=== PATIENT | male | born 1935 | race Caucasian/White ===

== ENCOUNTER 2017-10-11 19:47 | Inpatient (IN) | payer MEDICARE ==
[~2017-10-11] VITALS: Ht 165.1 cm; Wt 68.2 kg
--- NOTE | ~2017-10-11 | EC ---
PATIENT:AARON KEYES DATE OF SERVICE: 10/11/17 SEX: M MEDICAL RECORD: [id number] DATE OF : 35 LOCATION:[facility] AGE OF PATIENT: 82 ADMISSION DATE: 10/11/17 REFERRING PHYSICIAN: INTERPRETING PHYSICIAN: VALDEZ ROSAS MD ECHOCARDIOGRAM REPORT ECHO CHARGES 4 ECHO COMPLETE Date: 10/12 CLINICAL DIAGNOSIS: CP/SOB/PE'S ECHOCARDIOGRAPHIC MEASUREMENTS (adult normal given) AC root (d.<3.7cm) 2.7 cm LV Septum d (<1.2 cm> 1.1 cm Valve Excursion 1.7 cm LV Septum (systole) 1.2 cm Left Atria (s.<4.0cm> 2.6 cm LVPW d(<1.2cm) 1.0 cm RV (d.<2.3cm) 2.9 cm LVPW (sytole) 1.5 cm LV diastole(<5.6CM) 3.9 cm MV E-F(>70mm/sec) cm LV systole 3.0 cm LVOT Diameter 1.8 cm MV exc.(>10mm) cm Est.ejection fraction (50-75%) % DOPPLER: LVIT cm/sec A 78.0 cm/sec E 57.0 cm/sec LA cm/sec RVSP 41.0 mmHg LVOT 83.0 cm/sec AOP1/2T m/s Asc. Ao 109 cm/sec RVOT 59.0 cm/sec RA cm/sec PA 66.0 cm/sec AV Gradient Peak 4.8 mmHg AV Mean 2.5 mmHg AV Area 2.0 cm MV Gradient Peak 3.2 mmHg MV Mean 1.1 mmHg MV Area cm COMMENTS: Transformer Assembly Supervisor: 1 PRATIBHA BREAUXOE Communications Field Technician: 3 Dr. Carnes TAPE# PACS Pericardial Effusion N DATE OF SERVICE: Adequate 2-D, color flow and spectral Doppler, M-mode. No LVH. LV internal dimensions are normal. Wall motion is normal. EF is greater than or equal to 55%. Aortic valve is tricuspid with aortic valve sclerosis, but no significant stenosis seen. Left atrium is normal at 3.6. Mitral valve is thickened with mild MR. Right-sided chamber is normal. Trace TR. ECHOCARDIOGRAM REPORT [id number] AARON KEYES TRANSINT:[id number] Voice Confirmation ID: [id number] DOCUMENT ID: [id number] VALDEZ ROSAS MD at 0847 CC: [id number] DICTATION DATE: 10/13/17 1016 VESSEL BUILDER: 10/13/17 1520 ADM IN [facility] [address] [place] [address]
--- NOTE | ~2017-10-11 | CN ---
PATIENT NAME:AARON PULIDO MEDICAL RECORD: [id number] : 35 LOCATION:[facility] ADMIT DATE: 10/11/17 ACCOUNT: [id number] CONSULTING PHYSICIAN: RICHARD LU MD REFERRING PHYSICIAN: TOM LOTT MD DATE OF CONSULTATION: 10/12/2017 CONSULT REQUESTING PHYSICIAN: Dr. Tom Lott. REASON FOR CONSULTATION: Bilateral pneumonia, bilateral PE, and cavitating lesion in the lung. HISTORY OF PRESENT ILLNESS: Mr. Pulido is an 82-year-old gentleman who is sick for the last 3 days, having some chest pain and shortness of breath and taken to the local hospital. CTA showed pulmonary embolism and bilateral lower lobe pneumonia. The patient denies any fever or chill. No night sweats. She has only complaint that is chest pain and shortness of breath, cough without sputum production. REVIEW OF SYSTEMS: Mainly in the history of present illness. PAST MEDICAL HISTORY: 1. Gastroesophageal reflux disease. 2. COPD. 3. Tobacco dependence syndrome. PAST SURGICAL HISTORY: Nonsignificant. ALLERGIES: No known drug allergies. MEDICATIONS: CommProve is reviewed. PERSONAL AND SOCIAL HISTORY: The patient is still everyday smoker from a very young age. He is a nondrinker. FAMILY HISTORY: Noncontributory. PHYSICAL EXAMINATION: GENERAL: Now, the patient is lying comfortably. He is not in acute distress. VITAL SIGNS: The blood pressure 123/78, pulse is 86, respirations are 18, temperature 98.6, SPO2 95% on room air. HEENT: Conjunctivae are pink. Sclerae are not icteric. NECK: Supple, no JVD. CHEST: The chest excursion is minimal on both prolonged expiration with wheezing. HEART: Rhythm regular, normal sound, no murmur. ABDOMEN: Soft, bowel sounds present. No hepatosplenomegaly. RECTAL: Deferred. EXTREMITIES: No cyanosis, no clubbing, no pedal edema. SKIN: Warm, normal turgor. CENTRAL NERVOUS SYSTEM: The patient is awake and alert. There are no obvious intracranial abnormalities. The gait was not tested. IMAGING: Chest radiograph, there is bilateral nodular infiltrate left lower lobe more than the right. CONSULT REPORT [id number] AARON PULIDO OTHER LABORATORY DATA: CBC: WBC is 7.1, hemoglobin 12, hematocrit 36.4, the platelet count 203. Chemistry: Sodium is 139, potassium is 4.2, BUN is 27, creatinine is 1. IMPRESSION: 1. Pulmonary embolism. 2. Multilobar pneumonia consistent with a community-acquired pneumonia. 3. Acute exacerbation of chronic obstructive pulmonary disease. 4. Tobacco dependence syndrome. 5. Dyspnea. 6. Gastroesophageal reflux disease. RECOMMENDATION: 1. Continue Lovenox 1 mg per kg subQ b.i.d. We will start Xarelto or Eliquis after 3 days. 2. Check the CT scan of the chest. 3. Start albuterol/ipratropium nebulizer. Start Brovana, budesonide nebulizer, methylprednisolone IV. 4. Start him and continue Rocephin IV, Levaquin IV. Dr. Nagel has already been consulted. 5. Check the CT scan of the chest. 6. Nicotine patch. Smoking cessation. 7. Followup labs and chest radiograph. Dr. Marco Lott, thank you for involving me in the care of Mr. Pulido. TRANSINT:[id number] Voice Confirmation ID: [id number] DOCUMENT ID: [id number] RICHARD LU MD CC: TOM LOTT [id number] DICTATION DATE: 10/12/17 1656 POWERHOUSE HELPER: 10/13/17 0051 ADM IN [facility] [address] [place] [id number]
--- NOTE | ~2017-10-11 | PRO ---
PATIENT:AARON KEYES MEDICAL RECORD: [id number] : 35 LOCATION:[facility] ADMISSION DATE: 10/11/17 PROCEDURE PERFORMED BY: RICHARD LU MD DATE OF PROCEDURE: 10/15/2017 PROCEDURE: Fiberoptic bronchoscopy. INDICATION: Bilateral lower lobe with a cavitating lesion. MONITORING: EKG, pulse, and blood pressure were monitored throughout the procedure. MEDICATIONS: Atropine 0.6 mg IM, Phenergan 12.5 mg IV, Versed 2 mg IV, and fentanyl 50 mcg IV. PROCEDURE: After obtaining the conscious sedation, the fiberoptic bronchoscope was passed through the mouth. The epiglottis was normal. The vocal cords were normal, moving equally on phonation. There were whitish secretions in the oropharynx. The pyriform sinuses were normal. The main trachea was normal. The tobias was sharp. There are thick whitish secretions bilaterally in the main bronchus. The right upper lobe, right middle lobe, right lower lobe segment within normal range. No endobronchial lesion was seen. The left main bronchus, the subsegment to the left upper lobe, lingula, and left lower lobe within normal range. No endobronchial lesion was seen. There were thick whitish secretions in the endobronchial tree. Specimen washing was obtained and sent for routine culture sensitivity, AFB, fungus, and cytology. Overall, the patient tolerated the procedure very well. TRANSINT:[id number] Voice Confirmation ID: [id number] DOCUMENT ID: [id number] RICHARD LU MD CC: [id number] DICTATION DATE: 10/15/17 162 DISTRIBUTED [employer] CONSULTANT: 10/15/172118 ADM IN [place] [id number] [place] [address]
[2017-10-11 21:15] VITALS: BP 144/74
[2017-10-11 22:50] LABS: BASOPHILS 0.3 % (0-2); EOSINOPHILS 1.3 % (0-7); HEMATOCRIT 36.4 % (42.0-54.0); IMMATURE GRANULOCYTES 0.3 % (0-5); MEAN PLATELET VOLUME 9.9 fL (7.4-10.4); MONOCYTES 9.2 % (2-11); NEUTROPHILS 67.9 % (40-80); PLATELET COUNT 203 10x3/uL (130-400); RDW 13.8 % (11.5-14.5); WBC 7.1 10x3/uL (4.8-10.8)
[2017-10-11 23:07] LABS: ALBUMIN 2.5 g/dL (3.4-5.0); ALKALINE PHOSPHATASE 80 U/L (46-116); ALT (SGPT) 10 U/L (10-68); CALC OSMOLALITY 283 mosm/kg (275-300); CALCIUM 8.5 mg/dL (8.5-10.1); CARBON DIOXIDE 25.9 mmol/L (21.0-32.0); CHLORIDE - SERUM 105 mmol/L (98-107); GLUCOSE 116 mg/dL (74-106); POTASSIUM - SERUM 4.2 mmol/L (3.5-5.1); SODIUM 139 mmol/L (136-145); UREA NITROGEN 27 mg/dL (7-18); eGFR NON AFRICAN AMERICAN 76 mL/min (90-120)
[2017-10-12 00:51] VITALS: BMI 20.1
[2017-10-12 04:08] VITALS: BP 123/78
[2017-10-12 09:30] VITALS: BP 114/67
[2017-10-12 10:52] LABS: BASOPHILS 0.3 % (0-2); EOSINOPHILS 1.5 % (0-7); HEMOGLOBIN 13.9 g/dL (13.5-17.5); IMMATURE GRANULOCYTES 0.3 % (0-5); LYMPHOCYTES 17.2 % (15-50); MCH 30.5 pg (26.0-34.0); MCHC 33.1 g/dL (31.0-37.0); MCV 92.3 fL (80.0-100.0); NEUTROPHILS 72.7 % (40-80); PLATELET COUNT 234 10x3/uL (130-400); RBC 4.55 10x6/uL (4.20-6.10); WBC 6.9 10x3/uL (4.8-10.8)
[2017-10-12 11:49] LABS: CKMB 0.4 U/L (0.0-3.6); CREATINE KINASE 43 UL (21-232); PRO BNP 212 pg/mL (0-450)
[2017-10-12 11:51] LABS: TROPONIN-I < 0.017 ng/mL (0.000-0.060)
[2017-10-12 13:03] VITALS: BP 99/51
[2017-10-12 14:59] VITALS: Ht 165.1 cm; Wt 68.2 kg
[2017-10-12 16:37] VITALS: BP 77/38
[2017-10-12 17:44] LABS: CKMB 0.6 U/L (0.0-3.6); CREATINE KINASE 34 UL (21-232); TROPONIN-I < 0.017 ng/mL (0.000-0.060)
[2017-10-12 21:36] VITALS: BP 88/40
[2017-10-12 22:40] LABS: CKMB 0.3 U/L (0.0-3.6); CREATINE KINASE 37 UL (21-232); TROPONIN-I < 0.017 ng/mL (0.000-0.060)
[2017-10-13 01:03] VITALS: BP 87/46
[2017-10-13 05:33] VITALS: BP 93/46
[2017-10-13 06:23] LABS: BASOPHILS 0.1 % (0-2); EOSINOPHILS 0 % (0-7); HEMATOCRIT 34.6 % (42.0-54.0); HEMOGLOBIN 11.6 g/dL (13.5-17.5); IMMATURE GRANULOCYTES 0.3 % (0-5); LYMPHOCYTES 10.3 % (15-50); MCH 30.2 pg (26.0-34.0); MCHC 33.5 g/dL (31.0-37.0); MEAN PLATELET VOLUME 9.4 fL (7.4-10.4); NEUTROPHILS 83.3 % (40-80); PLATELET COUNT 224 10x3/uL (130-400); RBC 3.84 10x6/uL (4.20-6.10)
[2017-10-13 06:32] LABS: MCV 90.1 fL (80.0-100.0)
[2017-10-13 06:43] LABS: ALBUMIN 2.4 g/dL (3.4-5.0); ANION GAP 13.2 mmol/L (8-16); BILIRUBIN - TOTAL 0.22 mg/dL (0.2-1.3); CALCIUM 8.6 mg/dL (8.5-10.1); CARBON DIOXIDE 25.2 mmol/L (21.0-32.0); CREATININE - SERUM 1.1 mg/dL (0.6-1.3); POTASSIUM - SERUM 4.4 mmol/L (3.5-5.1)
[2017-10-13 09:10] VITALS: BP 88/41
[2017-10-13 13:25] VITALS: BP 89/52
[2017-10-13 17:10] VITALS: BP 123/75
[2017-10-13 20:00] VITALS: BP 112/60
[2017-10-14] VITALS: BP 120/79
[2017-10-14 04:00] VITALS: BP 105/51
[2017-10-14 05:49] LABS: BASOPHILS 0.1 % (0-2); EOSINOPHILS 0 % (0-7); HEMOGLOBIN 11.2 g/dL (13.5-17.5); IMMATURE GRANULOCYTES 0.3 % (0-5); MCH 29.9 pg (26.0-34.0); MCHC 32.9 g/dL (31.0-37.0); MCV 90.7 fL (80.0-100.0); MEAN PLATELET VOLUME 9.5 fL (7.4-10.4); MONOCYTES 2.9 % (2-11); NEUTROPHILS 90.7 % (40-80); PLATELET COUNT 261 10x3/uL (130-400); RBC 3.75 10x6/uL (4.20-6.10); RDW 14.1 % (11.5-14.5)
[2017-10-14 06:02] LABS: WBC 10.5 10x3/uL (4.8-10.8)
[2017-10-14 06:16] LABS: ALBUMIN 2.4 g/dL (3.4-5.0); ANION GAP 14.1 mmol/L (8-16); BILIRUBIN - TOTAL 0.25 mg/dL (0.2-1.3); CALCIUM 8.6 mg/dL (8.5-10.1); CARBON DIOXIDE 22.8 mmol/L (21.0-32.0); CREATININE - SERUM 1.1 mg/dL (0.6-1.3); POTASSIUM - SERUM 3.9 mmol/L (3.5-5.1); PROTEIN - SERUM 5.8 g/dL (6.4-8.2)
[2017-10-14 09:15] VITALS: BP 98/48
[2017-10-14 11:33] VITALS: BP 95/46
[2017-10-14 16:10] VITALS: BP 85/38
[2017-10-14 22:40] VITALS: BP 86/55
[2017-10-15 03:53] VITALS: BP 113/69; BP 95/49
[2017-10-15 06:06] LABS: BASOPHILS 0 % (0-2); EOSINOPHILS 0.1 % (0-7); HEMATOCRIT 33.3 % (42.0-54.0); IMMATURE GRANULOCYTES 0.2 % (0-5); LYMPHOCYTES 4.8 % (15-50); MCH 30.1 pg (26.0-34.0); MEAN PLATELET VOLUME 9.8 fL (7.4-10.4); MONOCYTES 3.1 % (2-11); NEUTROPHILS 91.8 % (40-80); PLATELET COUNT 312 10x3/uL (130-400); RBC 3.66 10x6/uL (4.20-6.10); RDW 14.6 % (11.5-14.5); WBC 11.1 10x3/uL (4.8-10.8)
[2017-10-15 06:30] LABS: ALBUMIN 2.3 g/dL (3.4-5.0); ANION GAP 13.2 mmol/L (8-16); BILIRUBIN - TOTAL 0.2 mg/dL (0.2-1.3); CALCIUM 8.3 mg/dL (8.5-10.1); CARBON DIOXIDE 25.8 mmol/L (21.0-32.0); PROTEIN - SERUM 5.4 g/dL (6.4-8.2)
[2017-10-15 06:33] LABS: CREATININE - SERUM 1.5 mg/dL (0.6-1.3)
[2017-10-15 08:23] VITALS: BP 101/49
[2017-10-15 12:09] VITALS: BP 113/60
[2017-10-15 16:49] VITALS: BP 90/50
[2017-10-15 20:20] VITALS: BP 99/50
[2017-10-16 04:22] VITALS: BP 104/54
[2017-10-16 07:00] VITALS: BP 106/57
[2017-10-16 07:16] LABS: BASOPHILS 0 % (0-2); EOSINOPHILS 0.1 % (0-7); HEMATOCRIT 36.4 % (42.0-54.0); HEMOGLOBIN 11.8 g/dL (13.5-17.5); IMMATURE GRANULOCYTES 0.5 % (0-5); LYMPHOCYTES 12.1 % (15-50); MCH 29.9 pg (26.0-34.0); MCHC 32.4 g/dL (31.0-37.0); MCV 92.2 fL (80.0-100.0); MONOCYTES 8.2 % (2-11); NEUTROPHILS 79.1 % (40-80); PLATELET COUNT 294 10x3/uL (130-400); RBC 3.95 10x6/uL (4.20-6.10); RDW 14.9 % (11.5-14.5); WBC 10.1 10x3/uL (4.8-10.8)
[2017-10-16 07:40] LABS: ALBUMIN 2.4 g/dL (3.4-5.0); ANION GAP 9.7 mmol/L (8-16); BILIRUBIN - TOTAL 0.3 mg/dL (0.2-1.3); CALCIUM 8.6 mg/dL (8.5-10.1); CARBON DIOXIDE 26.4 mmol/L (21.0-32.0); CREATININE - SERUM 1.2 mg/dL (0.6-1.3); POTASSIUM - SERUM 4.1 mmol/L (3.5-5.1); PROTEIN - SERUM 5.6 g/dL (6.4-8.2)
[2017-10-16 12:25] VITALS: BP 102/58
[2017-10-16 14:24] LABS: HISTOPLASMA GAL MANNAN AG SER <0.5 (<0.5 ng/mL)
[2017-10-16 17:12] LABS: ACID FAST SMEAR Negative (()); AFB SPECIMEN PROCESSING Concentration (())
[2017-10-16 17:41] VITALS: BP 100/56
[2017-10-16 20:53] VITALS: BP 104/47
[2017-10-17 01:13] VITALS: BP 124/54
[2017-10-17 04:45] VITALS: BP 108/67
[2017-10-17 07:43] VITALS: BP 125/74
[2017-10-17 07:50] LABS: BASOPHILS 0 % (0-2); EOSINOPHILS 0.9 % (0-7); HEMATOCRIT 34.4 % (42.0-54.0); HEMOGLOBIN 11.3 g/dL (13.5-17.5); IMMATURE GRANULOCYTES 0.9 % (0-5); LYMPHOCYTES 15.7 % (15-50); MCHC 32.8 g/dL (31.0-37.0); MCV 91.2 fL (80.0-100.0); MEAN PLATELET VOLUME 9.4 fL (7.4-10.4); NEUTROPHILS 72.5 % (40-80); PLATELET COUNT 289 10x3/uL (130-400); RBC 3.77 10x6/uL (4.20-6.10); RDW 15.1 % (11.5-14.5); WBC 8.8 10x3/uL (4.8-10.8)
[2017-10-17 08:05] LABS: ALBUMIN 2.3 g/dL (3.4-5.0); ALKALINE PHOSPHATASE 62 U/L (46-116); ALT (SGPT) 72 U/L (10-68); CALC OSMOLALITY 290 mosm/kg (275-300); CALCIUM 8.7 mg/dL (8.5-10.1); CARBON DIOXIDE 26.5 mmol/L (21.0-32.0); CHLORIDE - SERUM 109 mmol/L (98-107); CREATININE - SERUM 0.8 mg/dL (0.6-1.3); GLUCOSE 126 mg/dL (74-106); POTASSIUM - SERUM 3.9 mmol/L (3.5-5.1); PROTEIN - SERUM 5.2 g/dL (6.4-8.2); SODIUM 142 mmol/L (136-145); UREA NITROGEN 30 mg/dL (7-18); eGFR NON AFRICAN AMERICAN > 90 mL/min (90-120)
[2017-10-17 12:28] VITALS: BP 113/59
[2017-10-17 13:19] LABS: FUNGUS STAIN Final report (())
[2017-10-17 15:49] VITALS: BP 109/55
[2017-10-17] MEDS ORDERED: MUCINEX600 MG PO (17:12)
[2017-10-17] MEDS ORDERED: PROTONIX40 MG PO (17:12)
[2017-10-17] MEDS ORDERED: PULMICORT0.5 MG/21 UPD (17:12)
[2017-10-17] MEDS ORDERED: TESSALON PERLE100 MG PO (17:12)
[2017-10-17] MEDS ORDERED: NICODERM C1 PATCH .1 TRANSDERM (17:12)
[2017-10-17] MEDS ORDERED: STERAPRED 5MG 65 M1 PO (17:13)
[2017-10-19 12:17] LABS: FUNGUS CULTURE RESULT 1 Candida albicans (()); FUNGUS MYCOLOGY CULTURE Preliminary report (())
== END 2017-10-17 18:23 | disposition home or self-care (01) | DRG 175 ==
LOC: D.M2 19:47 → D.MS 20:20
PROVIDERS: Emergency Medicine; Internal Medicine Pulmonary Disease; Student in an Organized Health Care Education/Training Program
PROC: 0B978ZZ Drainage of Left Main Bronchus, Via Natural or Artificial Opening Endoscopic (ICD-10-PCS; 2017-10-15)
PROC: 0B938ZZ Drainage of Right Main Bronchus, Via Natural or Artificial Opening Endoscopic (ICD-10-PCS; principal; 2017-10-15 11:00)
DX: I26.99 Other pulmonary embolism without acute cor pulmonale (principal); J18.1 Lobar pneumonia, unspecified organism; J44.0 Chronic obstructive pulmonary disease with (acute) lower respiratory infection; J44.1 Chronic obstructive pulmonary disease with (acute) exacerbation; F17.203 Nicotine dependence unspecified, with withdrawal; N17.9 Acute kidney failure, unspecified; E44.0 Moderate protein-calorie malnutrition; I95.9 Hypotension, unspecified; R91.8 Other nonspecific abnormal finding of lung field; K21.9 Gastro-esophageal reflux disease without esophagitis; I34.0 Nonrheumatic mitral (valve) insufficiency; K76.89 Other specified diseases of liver; N28.1 Cyst of kidney, acquired; F03.90 Unspecified dementia, unspecified severity, without behavioral disturbance, psychotic disturbance, mood disturbance, and anxiety

== ENCOUNTER → 2017-11-16 10:26 | Outpatient (CLI) | payer MEDICARE ==
[2017-10-12 14:59] VITALS: BMI 20.1
[~2017-11-16 10:26] MED LIST: ALBUTEROL2.5 MG/3 M INH; BROVANA15 MCG/2 M INH; MUCINEX600 MG PO; NICODERM C1 PATCH .1 TRANSDERM; NORCO-5 PO; PROTONIX40 MG PO; PULMICORT0.5 MG/21 UPD; SINGULAIR10 MG PO; STERAPRED 5MG 65 M1 PO; TESSALON PERLE100 MG PO
== END | disposition home or self-care (01) ==
LOC: D.CT 10:26
DX: I26.99 Other pulmonary embolism without acute cor pulmonale (principal)

== ENCOUNTER 2017-11-16 17:22 | Inpatient (IN) | payer MEDICARE ==
[~2017-11-16] VITALS: Ht 165.1 cm; Wt 63.5 kg
--- NOTE | ~2017-11-16 | OP ---
PATIENT NAME: AARON KEYES MEDICAL RECORD: [id number] :35 LOCATION:[facility] ADMISSION DATE:11/16/17 SURGEON: CHAU BRUCE MD DATE OF OPERATION: 11/18/2017 PREOPERATIVE DIAGNOSIS: Persistent air leak in left chest. POSTOPERATIVE DIAGNOSES: Persistent air leak in left chest. PROCEDURE: Placement of two left-sided 28-Burundian chest tubes. SURGEON: Chau Bruce MD FARM AGENT: None. BLOOD LOSS: Minimal. ANESTHESIA: Local with IV sedation. OPERATIVE COURSE: The patient was identified as having significant subcutaneous emphysema when I was rounding last night. Although I was not directly involved in the patient's care, the nurses asked me to come see the patient as they were very concerned about the amount of subcutaneous emphysema. I ordered a chest x-ray. I then discussed the patient's case with Dr. Ibarra. He suggested that I become a risk and insurance consultant. It appeared that the proximal most sidehole on the chest tube was at the level of the chest wall. I believe that some of the air from the pneumothorax was exiting out through the chest tube and then out through this sidehole and causing significant amount of subcutaneous emphysema. Because there was free flow of air out of the left hemithorax, I felt that the patient would not go into a tension pneumothorax and that the chest tubes could be addressed today. The risks, possible complications, and alternatives to the procedure were explained to the patient and his by phone. His was very upset. Evidently, she was listed as the emergency contact number. Dr. Nguyen had tried to contact her several days ago and Dr. Nguyen states there was no answer on the cell phone and that there was no voice mail available. Therefore, she called the patient's daughter who lives in [place]. Anyhow, I obtained consent to place these 2 left-sided chest tubes. The patient was conveyed to the operating room urgently on 11/18/2017. IV sedation was induced by the anesthesia staff. The left upper chest was sterilely prepped and draped. I removed the indwelling chest tube in its entirety. I then oversewed the chest tube insertion site with a single horizontal mattress of 3-0 Vicryl Rapide suture. A local anesthetic was used to infiltrate skin and subcutaneous tissues, first in the anterior axillary line and then in the mid axillary line further down on the left chest wall. Transverse incisions were accomplished. I entered the left hemithorax over a rib. I inserted my gloved finger into the left hemithorax. The 28-Burundian chest tubes were placed. These were sutured in place with horizontal mattress 2-0 Prolenes. I then placed another 2-0 Prolene around this and secured this to the chest tube with bone wax for the final closure of the chest tube insertion sites. Sterile dressings were applied. We then "Y'ed" the chest tubes to a single chest tube canister. The patient was then conveyed to postanesthesia care unit, where he was in stable condition. OPERATIVE REPORT [id number] EMMIEJESSICAAARON TRANSINT:[id number] Voice Confirmation ID: [id number] DOCUMENT ID: [id number] CHAU BRUCE MD at 1612 CC: [id number] DICTATION DATE: 11/18/17 1451 NEWSWRITER: 11/18/17 1610 ADM IN [place] [id number] [place] [id number]
[~2017-11-16 17:22] MED LIST changes: -ALBUTEROL2.5 MG/3 M INH; -BROVANA15 MCG/2 M INH; -NORCO-5 PO; -SINGULAIR10 MG PO
[2017-11-16 18:10] LABS: BASOPHILS 0.1 % (0-2); EOSINOPHILS 0.5 % (0-7); HEMOGLOBIN 14.7 g/dL (13.5-17.5); LYMPHOCYTES 11.4 % (15-50); MCH 30.6 pg (26.0-34.0); MCHC 33.4 g/dL (31.0-37.0); MCV 91.7 fL (80.0-100.0); MEAN PLATELET VOLUME 10.2 fL (7.4-10.4); MONOCYTES 9.5 % (2-11); NEUTROPHILS 77.5 % (40-80); RDW 15.5 % (11.5-14.5); WBC 11.2 10x3/uL (4.8-10.8)
[2017-11-16 18:11] LABS: PLATELET COUNT 215 10x3/uL (130-400)
[2017-11-16 18:31] LABS: ALBUMIN 3.1 g/dL (3.4-5.0); ANION GAP 13.1 mmol/L (8-16); BILIRUBIN - TOTAL 0.45 mg/dL (0.2-1.3); CALCIUM 9.4 mg/dL (8.5-10.1); CREATININE - SERUM 1.2 mg/dL (0.6-1.3); POTASSIUM - SERUM 4.1 mmol/L (3.5-5.1); PROTEIN - SERUM 6.6 g/dL (6.4-8.2)
[2017-11-16 20:23] VITALS: BP 113/80
[2017-11-16 21:55] VITALS: BP 128/95
[2017-11-16 22:24] VITALS: BP 115/77
[2017-11-16 22:53] VITALS: BP 146/83
[2017-11-17 02:22] VITALS: BP 111/56; BMI 23.3
[2017-11-17 05:43] LABS: BASOPHILS 0.1 % (0-2); EOSINOPHILS 0 % (0-7); HEMATOCRIT 44.4 % (42.0-54.0); HEMOGLOBIN 14.3 g/dL (13.5-17.5); IMMATURE GRANULOCYTES 0.7 % (0-5); LYMPHOCYTES 2.6 % (15-50); MCHC 32.2 g/dL (31.0-37.0); MCV 93.1 fL (80.0-100.0); MEAN PLATELET VOLUME 10.4 fL (7.4-10.4); NEUTROPHILS 94.6 % (40-80); PLATELET COUNT 199 10x3/uL (130-400); RBC 4.77 10x6/uL (4.20-6.10); RDW 15.5 % (11.5-14.5)
[2017-11-17 06:07] LABS: WBC 16.4 10x3/uL (4.8-10.8)
[2017-11-17 06:14] VITALS: BP 102/55
[2017-11-17 06:22] LABS: ALBUMIN 2.7 g/dL (3.4-5.0); ANION GAP 14.5 mmol/L (8-16); BILIRUBIN - TOTAL 0.29 mg/dL (0.2-1.3); CALCIUM 9.2 mg/dL (8.5-10.1); CARBON DIOXIDE 28.4 mmol/L (21.0-32.0); CREATININE - SERUM 1.2 mg/dL (0.6-1.3); PROTEIN - SERUM 6.2 g/dL (6.4-8.2)
[2017-11-17 06:24] LABS: POTASSIUM - SERUM 4.9 mmol/L (3.5-5.1)
[2017-11-17 08:45] VITALS: BP 103/67
[2017-11-17 10:34] VITALS: BMI 23.2
[2017-11-17 12:39] VITALS: BP 102/57
[2017-11-17 13:02] VITALS: Ht 165.1 cm; Wt 63.5 kg
[2017-11-17 16:37] VITALS: BP 107/68
[2017-11-17 20:55] VITALS: BP 117/76
[2017-11-18] VITALS (8 sets, daily range): BP systolic 98–137; BP diastolic 43–60
[2017-11-18 05:51] LABS: BASOPHILS 0.1 % (0-2); EOSINOPHILS 0 % (0-7); HEMATOCRIT 40.7 % (42.0-54.0); HEMOGLOBIN 12.9 g/dL (13.5-17.5); IMMATURE GRANULOCYTES 0.6 % (0-5); LYMPHOCYTES 6.8 % (15-50); MCH 29.7 pg (26.0-34.0); MCHC 31.7 g/dL (31.0-37.0); MCV 93.6 fL (80.0-100.0); MEAN PLATELET VOLUME 10.8 fL (7.4-10.4); NEUTROPHILS 89.5 % (40-80); PLATELET COUNT 229 10x3/uL (130-400); RBC 4.35 10x6/uL (4.20-6.10); RDW 15.6 % (11.5-14.5); WBC 18.6 10x3/uL (4.8-10.8)
[2017-11-18 05:54] LABS: ANION GAP 11.6 mmol/L (8-16); CALCIUM 8.8 mg/dL (8.5-10.1); CARBON DIOXIDE 28.8 mmol/L (21.0-32.0); MAGNESIUM - SERUM 1.9 mg/dL (1.8-2.4); PHOSPHOROUS 4.1 mg/dL (2.5-4.9); POTASSIUM - SERUM 4.4 mmol/L (3.5-5.1)
[2017-11-18 06:05] LABS: CREATININE - SERUM 1.7 mg/dL (0.6-1.3)
[2017-11-19 00:38] VITALS: BP 129/56
[2017-11-19 04:35] VITALS: BP 115/37
[2017-11-19 06:10] LABS: BASOPHILS 0 % (0-2); EOSINOPHILS 0.1 % (0-7); HEMATOCRIT 40.4 % (42.0-54.0); HEMOGLOBIN 12.7 g/dL (13.5-17.5); IMMATURE GRANULOCYTES 0.5 % (0-5); LYMPHOCYTES 5.3 % (15-50); MCH 29.5 pg (26.0-34.0); MCHC 31.4 g/dL (31.0-37.0); MCV 93.7 fL (80.0-100.0); MEAN PLATELET VOLUME 11.2 fL (7.4-10.4); MONOCYTES 9.3 % (2-11); NEUTROPHILS 84.8 % (40-80); PLATELET COUNT 224 10x3/uL (130-400); RBC 4.31 10x6/uL (4.20-6.10); RDW 15.7 % (11.5-14.5)
[2017-11-19 06:41] LABS: ANION GAP 12.8 mmol/L (8-16); CALCIUM 8.8 mg/dL (8.5-10.1); CARBON DIOXIDE 27.6 mmol/L (21.0-32.0); POTASSIUM - SERUM 4.4 mmol/L (3.5-5.1)
[2017-11-19 06:42] LABS: CREATININE - SERUM 1.1 mg/dL (0.6-1.3)
[2017-11-19 08:07] VITALS: BP 114/55
[2017-11-19 11:40] VITALS: BP 139/55
[2017-11-19 15:38] VITALS: BP 125/77
[2017-11-19 20:00] VITALS: BP 143/76
[2017-11-20] VITALS: BP 120/65
[2017-11-20 05:51] VITALS: BP 107/65
[2017-11-20 07:00] LABS: BASOPHILS 0.1 % (0-2); EOSINOPHILS 0.6 % (0-7); HEMATOCRIT 38.7 % (42.0-54.0); HEMOGLOBIN 12.4 g/dL (13.5-17.5); IMMATURE GRANULOCYTES 0.5 % (0-5); LYMPHOCYTES 6.9 % (15-50); MCH 29.6 pg (26.0-34.0); MCV 92.4 fL (80.0-100.0); MEAN PLATELET VOLUME 11.3 fL (7.4-10.4); NEUTROPHILS 80.9 % (40-80); PLATELET COUNT 233 10x3/uL (130-400); RBC 4.19 10x6/uL (4.20-6.10); RDW 15.8 % (11.5-14.5)
[2017-11-20 07:01] LABS: WBC 10.7 10x3/uL (4.8-10.8)
[2017-11-20 07:27] LABS: CALC OSMOLALITY 288 mosm/kg (275-300); CALCIUM 8.8 mg/dL (8.5-10.1); CARBON DIOXIDE 25.9 mmol/L (21.0-32.0); CHLORIDE - SERUM 106 mmol/L (98-107); GLUCOSE 119 mg/dL (74-106); POTASSIUM - SERUM 3.8 mmol/L (3.5-5.1); SODIUM 141 mmol/L (136-145); UREA NITROGEN 32 mg/dL (7-18); eGFR NON AFRICAN AMERICAN 76 mL/min (90-120)
[2017-11-20 08:30] VITALS: BP 137/83
[2017-11-20 12:05] VITALS: BP 99/66
[2017-11-20 16:29] VITALS: BP 131/71
[2017-11-20 20:00] VITALS: BP 139/80
[2017-11-21 04:00] VITALS: BP 152/89
[2017-11-21 05:23] LABS: BASOPHILS 0.1 % (0-2); EOSINOPHILS 1.4 % (0-7); HEMATOCRIT 39.3 % (42.0-54.0); HEMOGLOBIN 12.7 g/dL (13.5-17.5); IMMATURE GRANULOCYTES 0.6 % (0-5); LYMPHOCYTES 8.9 % (15-50); MCH 29.5 pg (26.0-34.0); MCHC 32.3 g/dL (31.0-37.0); MCV 91.2 fL (80.0-100.0); MEAN PLATELET VOLUME 10.5 fL (7.4-10.4); MONOCYTES 8.7 % (2-11); NEUTROPHILS 80.3 % (40-80); PLATELET COUNT 244 10x3/uL (130-400); RBC 4.31 10x6/uL (4.20-6.10); RDW 15.5 % (11.5-14.5); WBC 10.1 10x3/uL (4.8-10.8)
[2017-11-21 05:39] LABS: CALC OSMOLALITY 284 mosm/kg (275-300); CALCIUM 8.6 mg/dL (8.5-10.1); CARBON DIOXIDE 28.6 mmol/L (21.0-32.0); CHLORIDE - SERUM 105 mmol/L (98-107); CREATININE - SERUM 0.9 mg/dL (0.6-1.3); GLUCOSE 123 mg/dL (74-106); POTASSIUM - SERUM 3.5 mmol/L (3.5-5.1); SODIUM 141 mmol/L (136-145); eGFR NON AFRICAN AMERICAN 86 mL/min (90-120)
[2017-11-21 05:44] LABS: UREA NITROGEN 20 mg/dL (7-18)
[2017-11-21 08:56] VITALS: BP 134/77
[2017-11-21 12:51] VITALS: BP 147/89
[2017-11-21 16:27] VITALS: BP 154/82
[2017-11-21 20:49] VITALS: BP 101/59
[2017-11-22 04:39] VITALS: BP 136/75
[2017-11-22 05:52] LABS: BASOPHILS 0.1 % (0-2); EOSINOPHILS 2.5 % (0-7); HEMATOCRIT 39.5 % (42.0-54.0); HEMOGLOBIN 12.7 g/dL (13.5-17.5); IMMATURE GRANULOCYTES 1.1 % (0-5); LYMPHOCYTES 11.4 % (15-50); MCH 29.6 pg (26.0-34.0); MCHC 32.2 g/dL (31.0-37.0); MCV 92.1 fL (80.0-100.0); MEAN PLATELET VOLUME 10.6 fL (7.4-10.4); MONOCYTES 10.9 % (2-11); PLATELET COUNT 259 10x3/uL (130-400); RBC 4.29 10x6/uL (4.20-6.10); RDW 15.9 % (11.5-14.5); WBC 8.9 10x3/uL (4.8-10.8)
[2017-11-22 06:22] LABS: CALC OSMOLALITY 289 mosm/kg (275-300); CALCIUM 8.4 mg/dL (8.5-10.1); CARBON DIOXIDE 28.9 mmol/L (21.0-32.0); CHLORIDE - SERUM 105 mmol/L (98-107); CREATININE - SERUM 0.7 mg/dL (0.6-1.3); GLUCOSE 108 mg/dL (74-106); POTASSIUM - SERUM 3.3 mmol/L (3.5-5.1); SODIUM 144 mmol/L (136-145); UREA NITROGEN 19 mg/dL (7-18); eGFR NON AFRICAN AMERICAN > 90 mL/min (90-120)
[2017-11-22 08:11] VITALS: BP 129/49
[2017-11-22 12:15] VITALS: BP 96/52
[2017-11-22 16:18] VITALS: BP 99/60
[2017-11-22 20:47] VITALS: BP 127/66
[2017-11-22 23:51] VITALS: BP 124/65
[2017-11-23 04:23] VITALS: BP 114/65
[2017-11-23 08:45] VITALS: BP 123/65
[2017-11-23 12:03] LABS: BASOPHILS 0.1 % (0-2); EOSINOPHILS 2.7 % (0-7); HEMATOCRIT 38.7 % (42.0-54.0); HEMOGLOBIN 12.1 g/dL (13.5-17.5); IMMATURE GRANULOCYTES 1.3 % (0-5); LYMPHOCYTES 11.9 % (15-50); MCH 29.5 pg (26.0-34.0); MCHC 31.3 g/dL (31.0-37.0); MEAN PLATELET VOLUME 10.9 fL (7.4-10.4); MONOCYTES 10.1 % (2-11); NEUTROPHILS 73.9 % (40-80); PLATELET COUNT 269 10x3/uL (130-400); RDW 16.2 % (11.5-14.5); WBC 10.6 10x3/uL (4.8-10.8)
[2017-11-23 12:10] LABS: ALBUMIN 2.4 g/dL (3.4-5.0); ALKALINE PHOSPHATASE 72 U/L (46-116); ALT (SGPT) 32 U/L (10-68); BILIRUBIN - TOTAL 0.31 mg/dL (0.2-1.3); CALC OSMOLALITY 288 mosm/kg (275-300); CALCIUM 8.1 mg/dL (8.5-10.1); CARBON DIOXIDE 31.8 mmol/L (21.0-32.0); CHLORIDE - SERUM 108 mmol/L (98-107); GLUCOSE 122 mg/dL (74-106); POTASSIUM - SERUM 3.7 mmol/L (3.5-5.1); PROTEIN - SERUM 4.9 g/dL (6.4-8.2); SODIUM 143 mmol/L (136-145); UREA NITROGEN 22 mg/dL (7-18); eGFR NON AFRICAN AMERICAN 76 mL/min (90-120)
[2017-11-23 12:26] LABS: MCV 94.4 fL (80.0-100.0)
[2017-11-23 12:50] VITALS: BP 111/66
[2017-11-23 16:25] VITALS: BP 114/54
[2017-11-23 20:00] VITALS: BP 107/63
[2017-11-24] VITALS: BP 140/76; BP 93/54
[2017-11-24 04:52] VITALS: BP 106/62
[2017-11-24 06:35] LABS: BASOPHILS 0.1 % (0-2); IMMATURE GRANULOCYTES 1.8 % (0-5); LYMPHOCYTES 15.2 % (15-50); MCH 29.3 pg (26.0-34.0); MCHC 31.6 g/dL (31.0-37.0); MCV 92.7 fL (80.0-100.0); NEUTROPHILS 72.9 % (40-80); PLATELET COUNT 225 10x3/uL (130-400); RDW 15.9 % (11.5-14.5); WBC 8.9 10x3/uL (4.8-10.8)
[2017-11-24 07:22] LABS: ALBUMIN 2.2 g/dL (3.4-5.0); ALKALINE PHOSPHATASE 65 U/L (46-116); ALT (SGPT) 33 U/L (10-68); BILIRUBIN - TOTAL 0.29 mg/dL (0.2-1.3); CALC OSMOLALITY 297 mosm/kg (275-300); CALCIUM 8.3 mg/dL (8.5-10.1); CARBON DIOXIDE 31.3 mmol/L (21.0-32.0); CHLORIDE - SERUM 107 mmol/L (98-107); CREATININE - SERUM 0.8 mg/dL (0.6-1.3); GLUCOSE 125 mg/dL (74-106); POTASSIUM - SERUM 3.9 mmol/L (3.5-5.1); SODIUM 148 mmol/L (136-145); UREA NITROGEN 22 mg/dL (7-18); eGFR NON AFRICAN AMERICAN > 90 mL/min (90-120)
[2017-11-24 08:49] VITALS: BP 103/54
[2017-11-24 14:08] VITALS: BP 127/65
[2017-11-24 16:56] VITALS: BP 115/63
[2017-11-24 20:00] VITALS: BP 98/54
[2017-11-25] VITALS (7 sets, daily range): BP systolic 97–117; BP diastolic 50–62
[2017-11-25 06:00] LABS: BASOPHILS 0.2 % (0-2); EOSINOPHILS 1.7 % (0-7); HEMATOCRIT 37.9 % (42.0-54.0); IMMATURE GRANULOCYTES 1.4 % (0-5); LYMPHOCYTES 12.3 % (15-50); MCH 29.3 pg (26.0-34.0); MCHC 31.7 g/dL (31.0-37.0); MCV 92.4 fL (80.0-100.0); MEAN PLATELET VOLUME 9.6 fL (7.4-10.4); MONOCYTES 8.6 % (2-11); NEUTROPHILS 75.8 % (40-80); PLATELET COUNT 214 10x3/uL (130-400); RDW 15.9 % (11.5-14.5); WBC 9.5 10x3/uL (4.8-10.8)
[2017-11-25 06:22] LABS: ALBUMIN 2.2 g/dL (3.4-5.0); ALKALINE PHOSPHATASE 69 U/L (46-116); ALT (SGPT) 29 U/L (10-68); BILIRUBIN - TOTAL 0.33 mg/dL (0.2-1.3); CALC OSMOLALITY 281 mosm/kg (275-300); CALCIUM 8.1 mg/dL (8.5-10.1); CHLORIDE - SERUM 105 mmol/L (98-107); CREATININE - SERUM 0.8 mg/dL (0.6-1.3); GLUCOSE 119 mg/dL (74-106); POTASSIUM - SERUM 3.5 mmol/L (3.5-5.1); SODIUM 140 mmol/L (136-145); UREA NITROGEN 19 mg/dL (7-18); eGFR NON AFRICAN AMERICAN > 90 mL/min (90-120)
[2017-11-26 05:25] LABS: BASOPHILS 0.1 % (0-2); HEMATOCRIT 38.2 % (42.0-54.0); HEMOGLOBIN 12.2 g/dL (13.5-17.5); IMMATURE GRANULOCYTES 1.4 % (0-5); LYMPHOCYTES 13.1 % (15-50); MCH 29.5 pg (26.0-34.0); MCHC 31.9 g/dL (31.0-37.0); MCV 92.5 fL (80.0-100.0); MONOCYTES 8.4 % (2-11); RBC 4.13 10x6/uL (4.20-6.10); RDW 16.2 % (11.5-14.5); WBC 7.9 10x3/uL (4.8-10.8)
[2017-11-26 05:27] LABS: PLATELET COUNT 294 10x3/uL (130-400)
[2017-11-26 06:18] LABS: ALBUMIN 2.2 g/dL (3.4-5.0); ALKALINE PHOSPHATASE 71 U/L (46-116); ALT (SGPT) 35 U/L (10-68); BILIRUBIN - TOTAL 0.29 mg/dL (0.2-1.3); CALC OSMOLALITY 285 mosm/kg (275-300); CALCIUM 8.3 mg/dL (8.5-10.1); CARBON DIOXIDE 30.3 mmol/L (21.0-32.0); CHLORIDE - SERUM 106 mmol/L (98-107); CREATININE - SERUM 0.8 mg/dL (0.6-1.3); GLUCOSE 109 mg/dL (74-106); POTASSIUM - SERUM 3.7 mmol/L (3.5-5.1); PROTEIN - SERUM 4.8 g/dL (6.4-8.2); SODIUM 142 mmol/L (136-145); UREA NITROGEN 19 mg/dL (7-18); eGFR NON AFRICAN AMERICAN > 90 mL/min (90-120)
[2017-11-26 08:33] VITALS: BP 117/62
[2017-11-26 12:49] VITALS: BP 114/60
[2017-11-26 16:58] VITALS: BP 110/67
[2017-11-26 19:28] VITALS: BP 94/51
[2017-11-27 00:51] VITALS: BP 100/43
[2017-11-27 04:28] VITALS: BP 91/50
[2017-11-27 06:24] LABS: BASOPHILS 0.1 % (0-2); EOSINOPHILS 1.9 % (0-7); HEMATOCRIT 36.7 % (42.0-54.0); HEMOGLOBIN 11.5 g/dL (13.5-17.5); IMMATURE GRANULOCYTES 0.9 % (0-5); LYMPHOCYTES 13.5 % (15-50); MCH 29.3 pg (26.0-34.0); MCHC 31.3 g/dL (31.0-37.0); MCV 93.6 fL (80.0-100.0); MEAN PLATELET VOLUME 10.3 fL (7.4-10.4); MONOCYTES 7.5 % (2-11); NEUTROPHILS 76.1 % (40-80); PLATELET COUNT 254 10x3/uL (130-400); RBC 3.92 10x6/uL (4.20-6.10); RDW 16.2 % (11.5-14.5); WBC 7.5 10x3/uL (4.8-10.8)
[2017-11-27 07:37] LABS: ALBUMIN 2.1 g/dL (3.4-5.0); ALKALINE PHOSPHATASE 76 U/L (46-116); ALT (SGPT) 39 U/L (10-68); BILIRUBIN - TOTAL 0.26 mg/dL (0.2-1.3); CALC OSMOLALITY 288 mosm/kg (275-300); CALCIUM 8.2 mg/dL (8.5-10.1); CARBON DIOXIDE 30.8 mmol/L (21.0-32.0); CHLORIDE - SERUM 106 mmol/L (98-107); CREATININE - SERUM 0.8 mg/dL (0.6-1.3); GLUCOSE 119 mg/dL (74-106); POTASSIUM - SERUM 3.6 mmol/L (3.5-5.1); PROTEIN - SERUM 4.9 g/dL (6.4-8.2); SODIUM 143 mmol/L (136-145); UREA NITROGEN 21 mg/dL (7-18); eGFR NON AFRICAN AMERICAN > 90 mL/min (90-120)
[2017-11-27 08:01] VITALS: BP 111/51
[2017-11-27 13:06] VITALS: BP 114/60
[2017-11-27 16:25] VITALS: BP 107/61
[2017-11-27 19:51] VITALS: BP 95/54
[2017-11-28 04:45] VITALS: BP 101/60
[2017-11-28 06:09] LABS: BASOPHILS 0.1 % (0-2); EOSINOPHILS 2.1 % (0-7); HEMATOCRIT 37.1 % (42.0-54.0); HEMOGLOBIN 11.8 g/dL (13.5-17.5); IMMATURE GRANULOCYTES 1.1 % (0-5); LYMPHOCYTES 16.2 % (15-50); MCH 29.4 pg (26.0-34.0); MCHC 31.8 g/dL (31.0-37.0); MCV 92.3 fL (80.0-100.0); MEAN PLATELET VOLUME 9.5 fL (7.4-10.4); MONOCYTES 7.9 % (2-11); NEUTROPHILS 72.6 % (40-80); PLATELET COUNT 245 10x3/uL (130-400); RBC 4.02 10x6/uL (4.20-6.10); RDW 16.1 % (11.5-14.5); WBC 7.5 10x3/uL (4.8-10.8)
[2017-11-28 06:51] LABS: ALBUMIN 2.1 g/dL (3.4-5.0); ALKALINE PHOSPHATASE 85 U/L (46-116); BILIRUBIN - TOTAL 0.33 mg/dL (0.2-1.3); CALC OSMOLALITY 283 mosm/kg (275-300); CALCIUM 8.1 mg/dL (8.5-10.1); CARBON DIOXIDE 31.3 mmol/L (21.0-32.0); CHLORIDE - SERUM 105 mmol/L (98-107); CREATININE - SERUM 0.8 mg/dL (0.6-1.3); GLUCOSE 120 mg/dL (74-106); POTASSIUM - SERUM 3.6 mmol/L (3.5-5.1); PROTEIN - SERUM 5.1 g/dL (6.4-8.2); SODIUM 141 mmol/L (136-145); UREA NITROGEN 18 mg/dL (7-18); eGFR NON AFRICAN AMERICAN > 90 mL/min (90-120)
[2017-11-28 06:53] LABS: ALT (SGPT) 53 U/L (10-68)
[2017-11-28 08:10] VITALS: BP 106/58
[2017-11-28 12:47] VITALS: BP 109/64
[2017-11-28] MEDS ORDERED: BROVANA15 MCG/2 M INH (13:38)
[2017-11-28] MEDS ORDERED: SINGULAIR10 MG PO (13:38)
[2017-11-28] MEDS ORDERED: NORCO-5 PO (13:38)
[2017-11-28] MEDS ORDERED: ALBUTEROL2.5 MG/3 M INH (13:39)
== END 2017-11-28 16:43 | disposition home or self-care (01) | DRG 199 ==
LOC: D.ER 17:22 → D.MS 23:16
PROVIDERS: Emergency Medicine; Family Medicine; Internal Medicine Nephrology
PROC: 0W9B30Z Drainage of Left Pleural Cavity with Drainage Device, Percutaneous Approach (ICD-10-PCS; principal; 2017-11-16)
PROC: 0W2BX0Z Change Drainage Device in Left Pleural Cavity, External Approach (ICD-10-PCS; 2017-11-18)
PROC: 0W9B30Z Drainage of Left Pleural Cavity with Drainage Device, Percutaneous Approach (ICD-10-PCS; 2017-11-18)
DX: J93.9 Pneumothorax, unspecified (principal); J18.1 Lobar pneumonia, unspecified organism; F17.203 Nicotine dependence unspecified, with withdrawal; N17.9 Acute kidney failure, unspecified; T79.7XXA Traumatic subcutaneous emphysema, initial encounter; E44.0 Moderate protein-calorie malnutrition; I27.82 Chronic pulmonary embolism; J93.82 Other air leak; R91.8 Other nonspecific abnormal finding of lung field; F03.90 Unspecified dementia, unspecified severity, without behavioral disturbance, psychotic disturbance, mood disturbance, and anxiety; R41.0 Disorientation, unspecified; Z68.23 Body mass index [BMI] 23.0-23.9, adult; H54.8 Legal blindness, as defined in USA

== ENCOUNTER → 2017-12-10 13:22 | Outpatient (CLI) | payer MEDICARE ==
[2017-11-17 13:02] VITALS: BMI 23.2
[~2017-12-10 13:22] MED LIST changes: +ALBUTEROL2.5 MG/3 M INH; +BROVANA15 MCG/2 M INH; +NORCO-5 PO; +SINGULAIR10 MG PO
== END | disposition home or self-care (01) ==
LOC: D.CT 13:22
DX: R91.8 Other nonspecific abnormal finding of lung field (principal)